=== PATIENT | female | born 1990 | race Caucasian/White ===

== ENCOUNTER 2018-02-16 07:01 | Day surgery (SDC) | payer OTHER ==
[2018-02-16 08:19] VITALS: BMI 25.1
--- NOTE | 2018-02-16 11:49 | PRG ---
OBSTETRIC EMERGENCY ROOM ENCOUNTER DATE OF SERVICE: 02/16/2018 PRIMARY PARAMEDIC SUPERVISOR: Ruthbhavya Dawn. CHIEF COMPLAINT: Abdominal and back pains. HISTORY OF PRESENT ILLNESS: The patient is a 27-year-old G3, P2 female with an intrauterine pregnanc y at 25 weeks and 6 days, who woke up with leg cramp and then felt abdominal cramping. After discuss ing her concerns with the on-call provider, the patient came to Labor and Delivery for evaluation. T he patient reports that this morning she has only been feeling the back pain. She has not been feeli ng any cramping any more. She last had intercourse on . She denies any leaking fluid, any b leeding, any urinary urgency or frequency. She denies any falls, fever, headache, chest pain, shortn ess of breath. She denies nausea and vomiting. She denies any new rashes. PAST MEDICAL HISTORY: Negative. PAST SURGICAL HISTORY: Negative. ALLERGIES: No known drug allergies. MEDICATIONS: vitamins. SOCIAL HISTORY: Denies drug, alcohol or tobacco use. OBSTETRIC LABORATORY DATA: Unavailable at time of dictation. REVIEW OF SYSTEMS: Per HPI. PHYSICAL EXAMINATION: VITAL SIGNS: Blood pressure is 101/69, heart rate of 75, respiratory rate of 20, satting 96% on room air, temperature 98.4. GENERAL: She appears to be in no acute distress. She is alert and oriented, cooperative and pleasan t to interact with. HEENT: Normocephalic, atraumatic. CHEST: Clear to auscultation bilaterally. HEART: Regular rate and rhythm. LUNGS: Clear to auscultation bilaterally. ABDOMEN: Soft, nontender to palpation. EXTREMITIES: Nontender, nonedematous. She does have some point tenderness in the left paravertebral region and the lower lumbar area. No vertebral tenderness. PELVIC: Vulva is without masses, lesions or erythema. Vagina is moist. Cervix is closed and firm a nd no palpable presenting part through the vaginal wall. heart tracing performed for abdominal pains and back pain. Baseline is noted to be in the 140s with moderate long-term variability, appropriate for a 25 weeker. Tocometer does not show any contr action pattern. She may have a little bit of underlying irritability not easily visible. ASSESSMENT AND PLAN: The patient is a 27-year-old G3, P2 female who presented to Labor and Delivery with back pain and abdominal pains. Abdominal pain has since dissipated prior to evaluation and back pain is musculoskeletal in nature. The patient has been given reassurance and counseled on stretchi ng regularly may help her discomfort in her back. The patient is being discharged to home and has a followup appointment with Ms. Ruth Dawn in the next couple of weeks.
== END 2018-02-16 08:45 | disposition home health service (06) ==
LOC: L&D/OP 07:01
PROVIDERS: ATTEND Advanced Practice Midwife
DX: O99.89 Other specified diseases and conditions complicating pregnancy, childbirth and the puerperium (principal); R10.9 Unspecified abdominal pain; M54.9 Dorsalgia, unspecified; Z3A.25 25 weeks gestation of pregnancy
CPT/HCPCS: 99282

== ENCOUNTER 2018-05-06 08:16 | Day surgery (SDC) | payer OTHER ==
[2018-05-06 09:02] VITALS: BMI 28.3
[2018-05-06 09:11] VITALS: BP 105/69; TEMP 98.4
--- NOTE | 2018-05-06 12:11 | ER ---
DATE OF SERVICE: 05/06/2018 TIME OF SERVICE: 10:15 OB ED NOTE PRESENTING COMPLAINT: Pressure at 37 weeks. HISTORY OF PRESENT ILLNESS: Ms. Hull is a 27-year-old 3, para 2, who is at 37 weeks with a scheduled repeat on 05/20/2018. Antepartum record is on the unit. The patient had 2 previ ous C-sections; first born baby had Briseida syndrome. She is blood type O positive, antibody negative , Pap negative, rubella immune, VDRL nonreactive. Hepatitis B, GC, chlamydia negative. She had a no rmal [id number]. Group B strep is pending. PAST MEDICAL HISTORY: None. PAST SURGICAL HISTORY: C-sections x2. ALLERGIES: Denies. MEDICATIONS: vitamins and Diclegis. SOCIAL HISTORY: Denies tobacco, alcohol, or drug abuse. FAMILY HISTORY: Noncontributory. REVIEW OF SYSTEMS: Noncontributory. PHYSICAL EXAMINATION: GENERAL: Black female, resting comfortably. VITAL SIGNS: Blood pressure 118/72, temperature 98.4, pulse 85, respirations 18. HEENT: Within normal limits. LUNGS: Clear to auscultation bilaterally. HEART: Regular rate and rhythm. ABDOMEN: Soft and nontender. Fundal height 36. FHTs 140s. PELVIC: Vulva without lesions. Vagina without discharge. Cervix is posterior, soft, fingertip, 50% effaced. Cephalic head is very low in the pelvis at 0 to +1 station. EXTREMITIES: Without clubbing, cyanosis or edema. nonstress test was carried out, because of the patient's history of previous and comp laining of pressure. Nonstress test for greater than 30 minutes revealed a category 1 heart ra te tracing with contractions approximately every 10-15 minutes. Category 1 tracing was noted through out. IMPRESSION: Pressure. No evidence of active labor and no cervical dilatation at 37 weeks gestation, previous x2. PLAN: Discharge home. ER precautions for increased contractions, rupture of membranes. The patient has scheduled followup in 2 days at [facility].
== END 2018-05-06 10:18 | disposition home health service (06) ==
LOC: L&D/OP 08:16
PROVIDERS: ATTEND Obstetrics & Gynecology
DX: O47.1 False labor at or after 37 completed weeks of gestation (principal); Z79.899 Other long term (current) drug therapy; Z3A.37 37 weeks gestation of pregnancy
CPT/HCPCS: 99282

== ENCOUNTER 2018-05-08 14:36 | Day surgery (SDC) | payer OTHER ==
[2018-05-08 15:16] VITALS: BMI 28.4
--- NOTE | 2018-05-08 17:04 | PDOC.LDHP ---
Labor and Delivery H&P Chief complaint: decreased movement HPI: 27 y/o at 37w3d, patient of Lucho Dawn/Dr. Bernardo, presents with decreased FM since the weekend. Was seen in clinic today and scheduled for BPP but was tired of waiting and came here instead. Denies VB, LOF, ctx, or other concerns. ROS neg for HEENT, CV, pulm, GI, , neuro, psych, skin, musculoskeletal, or constitutional symptoms other than mentioned above. OB History Details: 2 prior term LTCS 1st baby with Briseida Syndrome Current complications: none Past Medical History: None Current medications: pre-cheri vitamins Previous surgical history: low tranverse CS (x2) Allergies/Adverse Reactions: Allergies Allergy/AdvReac Type Severity Reaction Status Date / Time No Known Allergies Allergy Unverified 02/16/18 08:21 Social history: none - Physical Exam Vital signs reviewed and normal: yes General: NAD, resting Lungs: nonlabored breathing Abdomen: gravid Extremeties: no edema FHT: category 1 (130s, mod variability, + accels, no decels) [place] contractions every: irregular - Assessment 27 y/o at 37w3d with reassuring status. BPP 04/03. - Plan -: D/c home with precautions. Advised to keep appointments. Next appointment next week. Scheduled for repeat LTCS 05/20/18.
--- NOTE | 2018-05-08 17:08 | ULT ---
ULTRASOUND BIOPHYSICAL PROFILE: 05/08/18 HISTORY: Decreased movement. FINDINGS: A single live intrauterine gestation is seen with a heart rate of 132 beats per minute. TAY is 7.1 cm. Placenta is on the left without placenta previa. BIOPHYSICAL PROFILE: tone: 2 breathin movement: 2 Amniotic fluid: 2 IMPRESSION: Ultrasound biophysical profile score is 8 out of 8. POS: [facility]
== END 2018-05-08 17:00 | disposition home health service (06) ==
LOC: L&D/OP 14:36
PROVIDERS: ATTEND Obstetrics & Gynecology
DX: O36.8130 Decreased fetal movements, third trimester, not applicable or unspecified (principal); Z3A.37 37 weeks gestation of pregnancy
CPT/HCPCS: 76819; 99282

== ENCOUNTER 2018-05-20 04:52 | Inpatient (IN) | payer OTHER ==
[2018-05-20] MEDS ORDERED: CEFAZOLIN/Water 2 GM/20 ML SYRINGE SLOW IVP SCH (05:23)
[2018-05-20] MEDS ORDERED: Promethazine HCl 25 MG/ML VIAL IM PRN ×2 (05:23→09:36)
[2018-05-20] MEDS ORDERED: Bicitra 30 ML UDCUP PO SCH (05:23)
[2018-05-20] MEDS ORDERED: Ondansetron PF 4 MG/2 ML Vial IVP PRN ×3 (05:23→10:35)
[2018-05-20] MEDS ORDERED: CEFAZOLIN 2 GM/50 ML-DEXTROSE 2 GM in Premix Bag 1 BAG IVPB SCH (05:45)
[2018-05-20 05:47] VITALS: BMI 28.5
[2018-05-20] MEDS: Lactated Ringer's 1,000 ML IV SCH ×3 (06:02→09:39)
[2018-05-20 06:09] LABS: Hemoglobin 12.2 g/dL (12.0-16.0); Mean Corpuscular HGB CONC 34.6 g/dL (32.0-36.0); Mean Corpuscular Hemoglobin 28.5 pg (27.0-31.0); Mean Corpuscular Volume 82.5 fL (78.0-98.0); Mean Platelet Volume 8.5 fL (7.4-10.4); Platelet Count 174 thou/uL (130-400); Red Blood Cell (RBC) Count 4.27 mill/uL (4.20-5.40)
[2018-05-20 06:47] LABS: Hep B Surf Ag Non-Reactive S/CO (NonReactive)
[2018-05-20 06:53] LABS: Syphilis Antibody Nonreactive (Nonreactive); Syphilis Antibody Index 0.02 S/CO (<1.00 Non-Reactive)
[2018-05-20] MEDS ORDERED: Bupivacaine 0.75% W/DEXTROSE 8.25% 2 ML AMP ONE (07:02)
[2018-05-20] MEDS ORDERED: Morphine PF 1 MG/ML SYR ONE (07:03)
[2018-05-20] MEDS ORDERED: Lidocaine 2% PF Inj 2 ML VIAL ONE (07:13)
[2018-05-20] MEDS ORDERED: Lidocaine 1% (PF) 30 ML VIAL ONE (07:14)
[2018-05-20] MEDS ORDERED: Ondansetron PF 4 MG/2 ML Vial ONE ×2 (07:43→13:35)
[2018-05-20] MEDS ORDERED: Oxytocin 10 UNITS/ML VIAL ONE (07:43)
--- NOTE | 2018-05-20 07:48 | PDOC.LDHP ---
Labor and Delivery H&P Chief complaint: scheduled section HPI: Pt is a 27yo @ 39+ weeks here for scheduled RCS. Current gestational age (weeks): 39 Due date: 05/26/18 Dating criteria: first trimester ultrasound Grav: 3 Para: 2 OB History Details: hx of CS x 2 Current complications: none Abnormal US findings: No Current medications: pre- vitamins Previous surgical history: low tranverse CS (x2) Allergies/Adverse Reactions: Allergies Allergy/AdvReac Type Severity Reaction Status Date / Time No Known Allergies Allergy Verified 05/20/18 05:47 Social history: none - Physical Exam Vital signs reviewed and normal: yes General: resting - OB Labs Blood type: O RH: positive Antibody Screen: negative HIV: negative RPR: negative HEPSAg: negative 1 hour GCT: positive 3 hour GTT: neg GBS: negative - Assessment L&D Assessment: scheduled repeat section - Plan Plan: admit to L&D, to OR for section, informed consent obtained, anesthesia consult for pain management
[2018-05-20] MEDS ORDERED: Midazolam HCl 2 mg/2 ml Vial ONE (08:06)
--- NOTE | 2018-05-20 08:18 | PDOC.OPDEL ---
OB Operative/Delivery Note Delivery Dr/Surgeon: Az Assist: Aimee Pre-Delivery Diagnosis: scheduled section Procedure/Post Delivery Dx: repeat low transverse CS Weeks gestation: 39 Anesthesia: spinal - Findings A Sex: male - Additional Findings/Plan Placenta delivered: spontaneous findings: low transverse hysterotomy without extension, normal uterus Estimated blood loss: 500ml, QBL pending Post delivery plan: routine recovery
[2018-05-20] MEDS ORDERED: Ketorolac Tromethamine 30 MG/ML VIAL ONE (09:30)
[2018-05-20] MEDS ORDERED: Ketorolac Tromethamine 30 MG/ML VIAL IVP PRN ×2 (09:36→16:00)
[2018-05-20] MEDS ORDERED: Naloxone HCl 0.4 mg/ml Vial IV PRN (09:36)
[2018-05-20] MEDS ORDERED: Naloxone HCl 0.4 mg/ml Vial IVP PRN ×2 (09:36)
[2018-05-20] MEDS ORDERED: Eucerin (Mineral Oil/Petrolatum,White) 30 gm Jar TOP PRN (09:36)
[2018-05-20] MEDS ORDERED: diphenhydrAMINE 50 MG/ML VIAL IVP PRN (09:36)
[2018-05-20] MEDS ORDERED: Promethazine HCl 25 MG SUPP PR PRN (09:36)
[2018-05-20] MEDS ORDERED: Communication Order-Pharmacy FS SCH (09:45)
[2018-05-20] MEDS ORDERED: Adacel (T-DAP) 0.5 ML VIAL IM ONE (10:35)
[2018-05-20] MEDS ORDERED: Bisacodyl 10 MG SUPP PR PRN (10:35)
[2018-05-20] MEDS ORDERED: Lactated Ringer's 1,000 ML IV SCH (10:35)
[2018-05-20] MEDS ORDERED: Simethicone Chewable 80 MG TAB PO PRN (10:35)
[2018-05-20] MEDS ORDERED: Lanolin Ointment 7 GM TUBE TOP PRN (10:35)
--- NOTE | 2018-05-20 12:55 | OP ---
DATE OF PROCEDURE: 05/20/2018 PREOPERATIVE DIAGNOSES: 1. A 27-year-old G3, P2 at 39 weeks. 2. Previous section x2. POSTOPERATIVE DIAGNOSIS: Status post repeat low-transverse section. PROCEDURES PERFORMED: Repeat low-transverse section. SURGEON: Joseph Bernardo D.O. HEALTH ADVISOR: Leigh Yu M.D. ANESTHESIA: Spinal. COMPLICATIONS: None. ESTIMATED BLOOD LOSS: Approximately 600 mL. INTRAOPERATIVE FINDINGS: 1. Minimal adhesive disease. 2. Low-transverse hysterotomy without extension. 3. Clear amniotic fluid. 4. Vigorous male , Apgars and weight pending at the time of dictation. 5. Normal-appearing uterus, tubes, and ovaries. 6. Surgical sites hemostatic. 7. Placenta delivered with 3-vessel cord. 8. Fundus firm after delivery of baby and placenta. PROCEDURE DETAILS: The patient was taken back to the OR with IV fluids running. Once she was in the OR, spinal anesthesia was obtained and the patient was then placed in dorsal supine position with a left lateral tilt. The abdomen was prepped and draped in normal fashion for section after a Rizo catheter was placed using sterile technique. The surgeons were scrubbed in. Anesthesia was t ested and found to be adequate. A Pfannenstiel skin incision was made through the skin with a scalpe l. The skin incision was carried down through the subcutaneous fat to the fascia. Once the fascia w as reached, it was incised in the midline and extended superolaterally using curved Edsai scissors. K ocher clamps and the Bovie cauterization were used to dissect the rectus fascia off the rectus abdomi nis muscles both cephalad and caudad directions allowing adequate space for delivery of the infant. The rectus muscles were then tented off the abdomen with 2 Allis clamps and a scalpel was used to sep arate the rectus muscles in the midline. Once the peritoneum was entered, it was bluntly stretched l aterally. The uterus was examined with no adhesions noted of the uterus or lower uterine segment. A n Mc O retractor was placed into the abdomen for retraction, visualization, and protection of the wound. A bladder flap was created and bladder was dissected away from the planned hysterotomy site. A low-transverse hysterotomy was made with the scalpel. The uterus was bluntly entered and stretch ed using the Lewis maneuver. Amniotomy was performed and clear fluid was noted. The was then delivered through the hysterotomy without difficulty. Once it was delivered, the nose and mouth were suctioned. Cord was doubly clamped and cut and the was handed off to special care nurses in attendance at the [facility]. Cord blood was collected. The placenta was delivered. The uterus was mas saged to firm and cleaned with a dry sponge. The uterus was not exteriorized due to the size of the uterus and difficulty getting it out; however, the ovaries and tubes were briefly visualized and appe ared to be normal. After the clot and debris were removed from the uterus, the hysterotomy was inspe cted with no bleeding noted. The hysterotomy was closed with Monocryl suture in a running locked fas hion. After the hysterotomy was closed, the pericolic gutters and hysterotomy were irrigated and suc tioned dry. The hysterotomy was then inspected again and no areas of bleeding were noted. The Jaden s O retractor was removed from the abdominal cavity. The first count was correct. The rectus muscle and fascia were inspected and any small areas of bleeding were controlled with Bovie cauterization. The rectus fascia was then reapproximated from corner to corner and tied together in the midline wit h PDS suture. Subcutaneous tissue was irrigated and dried. Any small areas of bleeding were control led with Bovie cauterization. Subcutaneous tissue was reapproximated with plain gut suture, and the skin was closed with 4-0 Monocryl, then dressed with Dermabond dressing. The uterus was noted to be firm at the end of the case. The patient was clean, dry, and moved to recovery room in [facility]
[2018-05-20] MEDS ORDERED: Ibuprofen 800 MG TAB PO SCH (14:00)
[2018-05-20] MEDS: Ferrous Sulfate 325 MG TAB PO SCH ×2 (15:55→22:41)
[2018-05-20] MEDS: Docusate Calcium (SURFAK) 240 MG CAP PO SCH ×2 (15:55→21:31)
[2018-05-20] MEDS: Prenatal Vitamin 1 TAB PO SCH (15:55)
[2018-05-20] MEDS ORDERED: HYDROcodone/Acetaminophen 5/325 mg Tablet PO PRN (21:45)
[2018-05-20] MEDS: HYDROcodone/Acetaminophen 5/325 mg Tablet PO PRN (21:56)
[2018-05-21] MEDS: HYDROcodone/Acetaminophen 5/325 mg Tablet PO PRN ×2 (03:50→17:34)
[2018-05-21] MEDS: Ibuprofen 800 MG TAB PO SCH ×2 (06:10→13:57)
[2018-05-21] MEDS: Ferrous Sulfate 325 MG TAB PO SCH (08:34)
[2018-05-21] MEDS: Prenatal Vitamin 1 TAB PO SCH (08:34)
[2018-05-21] MEDS: Docusate Calcium (SURFAK) 240 MG CAP PO SCH (08:34)
--- NOTE | 2018-05-21 13:45 | PDOC.PP ---
Post Progress Note Post Day #: 1 Subjective: doing well, tolerating diet, ambulating and voiding well PO intake tolerated: yes Flatus: yes Ambulation: yes Vital Signs (12 hours) Temp Pulse Resp BP BP Pulse Ox 05/21/18 12:00 97.6 F 63 20 101/60 05/21/18 08:00 98.3 F 74 20 98/55 L 97 05/21/18 04:00 98.7 F 79 16 103/65 05/21/18 02:00 20 Weight Weight 204 lb 7.196 oz - Physical Examination General: NAD Respiratory: non-labored breathing Abdominal: no distention, appropriately TTP Fundus firm & at: below umb Extremities: negative homans (B) Skin: CS incision dry & intact Neurological: no gross focal deficits Psychiatric: A&Ox3, normal affect Result Diagrams: 05/20/18 05:26 Additional Labs: Post Labs Blood Type O POSITIVE 05/20/18 05:26 Hep Bs Antigen Non-Reactive S/CO (NonReactive) 05/20/18 05:26 (1) 39 weeks gestation of Code(s): Z3A.39 - 39 WEEKS GESTATION OF Status: Acute (2) Status post repeat low transverse section Code(s): Z98.891 - HISTORY OF UTERINE SCAR FROM PREVIOUS SURGERY Status: Acute - Assessment/Plan POD1, sp RLTCS. Isolated fever x 1 yesterday evening, none since, will continue to monitor closely, pt denies any fever/chills. Advance orders.
[2018-05-22] MEDS: Ibuprofen 800 MG TAB PO SCH ×2 (00:50→08:44)
[2018-05-22] MEDS: Ferrous Sulfate 325 MG TAB PO SCH ×2 (00:50→07:32)
[2018-05-22] MEDS: Docusate Calcium (SURFAK) 240 MG CAP PO SCH ×2 (00:51→08:44)
[2018-05-22 08:05] VITALS: BP 114/71; TEMP 98.3
[2018-05-22] MEDS: Prenatal Vitamin 1 TAB PO SCH (08:44)
--- NOTE | 2018-05-22 12:07 | PDOC.PP ---
Post Progress Note Post Day #: 2 Subjective: Doing well, no fever or chills, refused AM labs yesterday, request DC today PO intake tolerated: yes Flatus: yes Ambulation: yes Vital Signs (12 hours) Temp Pulse Resp BP Pulse Ox 05/22/18 08:40 98 05/22/18 08:05 98.3 F 80 20 114/71 98 Weight Weight 204 lb 7.196 oz - Physical Examination General: NAD Respiratory: non-labored breathing Skin: CS incision dry & intact Psychiatric: A&Ox3 Result Diagrams: 05/20/18 05:26 Additional Labs: Post Labs Blood Type O POSITIVE 05/20/18 05:26 Hep Bs Antigen Non-Reactive S/CO (NonReactive) 05/20/18 05:26 (1) 39 weeks gestation of Code(s): Z3A.39 - 39 WEEKS GESTATION OF Status: Acute (2) Status post repeat low transverse section Code(s): Z98.891 - HISTORY OF UTERINE SCAR FROM PREVIOUS SURGERY Status: Acute - Assessment/Plan POD2 sp RCS, doing well, afebrile since POD0 request DC today.
== END 2018-05-22 15:10 | disposition home or self-care (01) | DRG 788 ==
LOC: L&D 04:52 → 3SW 11:17
PROVIDERS: ADMIT Obstetrics & Gynecology; ATTEND Obstetrics & Gynecology
PROC: 10D00Z1 Extraction of Products of Conception, Low, Open Approach (ICD-10-PCS; principal; 2018-05-20)
DX: O34.211 Maternal care for low transverse scar from previous cesarean delivery (principal); Z3A.39 39 weeks gestation of pregnancy; Z37.0 Single live birth
CPT/HCPCS: 36415; 51702; 85027; 86780; 86850; 86900; 86901; 87340; 90715; J1885; J2001; J2250; J2274; J2405; J2590; J3490